=== PATIENT | male | born 1960 | race Two or more races ===

== ENCOUNTER 2021-06-03 14:10 | Outpatient (CLI) | payer OTHER | END 2021-06-03 14:40 | disposition home or self-care (01) | LOC: PPH VACUNA 14:10 | PROVIDERS: ATTEND Emergency Medicine Pediatric Emergency Medicine | DX: Z23 Encounter for immunization (principal) ==

== ENCOUNTER 2022-03-24 | Outpatient (CLI) | payer OTHER | END 2022-03-24 00:15 | disposition home or self-care (01) | LOC: PPH VACUNA | PROVIDERS: ATTEND Emergency Medicine Pediatric Emergency Medicine | DX: Z23 Encounter for immunization (principal) ==